=== PATIENT | female | born 1995 | race Caucasian/White ===

== ENCOUNTER 2018-12-07 16:55 | Inpatient (IN) | payer BC ==
[2018-12-07] MEDS ORDERED: Nalbuphine 20 MG/ML 1 ML Syringe IVPUSH PRN (17:59)
[2018-12-07] MEDS ORDERED: Sodium Chloride 0.9% 10 ML Syringe FLUSH PRN (17:59)
[2018-12-07] MEDS ORDERED: Ondansetron 4 MG/2 ML SDV IVPUSH PRN (17:59)
[2018-12-07] MEDS ORDERED: Oxytocin/Lactated Ringers 10 UNIT/1,000 ML BAG IV SCH (18:00)
[2018-12-07] MEDS ORDERED: fentaNYL 100 MCG/2 ML SDV ONE (20:11)
[2018-12-07] MEDS: Lactated Ringers 1,000 ML IV SCH ×3 (20:15→21:37)
[2018-12-07] MEDS ORDERED: diphenhydrAMINE 50 MG/ML SDV IVPUSH PRN (20:38)
[2018-12-07] MEDS ORDERED: fentaNYL/Bupivacaine-NS 2 MCG/ML-0.125%/PF 100 ML Bag EPIDUR PRN (20:38)
[2018-12-07] MEDS ORDERED: fentaNYL 100 MCG/2 ML SDV EPIDUR PRN (20:38)
[2018-12-07] MEDS ORDERED: ePHEDrine 50 MG/ML SDV IVPUSH PRN (20:38)
--- NOTE | 2018-12-07 21:17 | PCM.PREANE ---
Preanesthetic Assessment - Anesthesia/Transfusion/Family Hx Anesthesia History: Prior Anesthesia Without Reaction Family History of Anesthesia Reaction: No Transfusion History: No Prior Transfusion(s) - Review of Systems General: Fatigue Pulmonary: No Symptoms Cardiovascular: Dyspnea on Exertion Gastrointestinal: Abdominal Pain (labor) Neurological: No Symptoms Other: Reports: None - Physical Assessment Pulse: 78 O2 Sat by Pulse Oximetry: 98 Respiratory Rate: 16 Blood Pressure: 137/93 Temperature: 36.6 C Vital Signs: Last Vital Signs Temp 36.6 C 12/07/18 17:22 Pulse 78 12/07/18 17:22 Resp 16 12/07/18 17:22 BP 137/93 H 12/07/18 17:22 Pulse Ox Height: 1.74 m Weight: 93.939 kg ASA Class: 2 Mental Status: Alert & Oriented x3 Airway Class: Mallampati = 1 Dentition: Reports: Normal Dentition Thyro-Mental Finger Breadths: 3 Mouth Opening Finger Breadths: 3 ROM/Head Extension: Full Lungs: Clear to Auscultation, Normal Respiratory Effort Cardiovascular: Regular Rate, Regular Rhythm - Lab Values: Laboratory Last Values WBC 14.72 K/mm3 (3.98-10.04) H 12/07/18 20:50 RBC 3.84 M/mm3 (3.98-5.22) L 12/07/18 20:50 Hgb 10.7 gm/L (11.2-15.7) L 12/07/18 20:50 Hct 33.3 % (34.1-44.9) L 12/07/18 20:50 MCV 86.7 fl (79.4-94.8) 12/07/18 20:50 MCH 27.9 pg (25.6-32.2) 12/07/18 20:50 MCHC 32.1 g/dl (32.2-35.5) L 12/07/18 20:50 RDW Std Deviation 44.9 fL (36.4-46.3) 12/07/18 20:50 Plt Count 266 K/mm3 (182-369) 12/07/18 20:50 MPV 10.4 fl (9.4-12.3) 12/07/18 20:50 - Allergies Allergies/Adverse Reactions: Allergies Allergy/AdvReac Type Severity Reaction Status Date / Time cat dander Allergy Itching Verified 12/07/18 17:57 - Anesthesia Plan Pre-Op Medication Ordered: None - Acknowledgements Anesthesia Type Planned: Epidural Pt an Appropriate Candidate for the Planned Anesthesia: Yes Alternatives and Risks of Anesthesia Discussed w Pt/Guardian: Yes Pt/Guardian Understands and Agrees with Anesthesia Plan: Yes PreAnesthesia Questionnaire - Past Health History Medical/Surgical History: Denies Medical/Surgical History HEENT History: Reports: None Cardiovascular History: Reports: Hypertension Other Cardiovascular History: Gestational HTN Respiratory History: Reports: Asthma, Other (See Below) Other Respiratory History: Allergic/exercise induced asthma with PRN inhaler use (ProAir (not used since prgnant) Gastrointestinal History: Reports: GERD Genitourinary History: Reports: STD Other Genitourinary History: HX Herpes [employer] [address] [employer] History: Reports: Musculoskeletal History: Reports: None Neurological History: Reports: None Psychiatric History: Reports: None Endocrine/Metabolic History: Reports: None Hematologic History: Reports: None Immunologic History: Reports: None Oncologic (Cancer) History: Reports: None Dermatologic History: Reports: None - Infectious Disease History Infectious Disease History: Reports: Herpes - Past Surgical History Head Surgeries/Procedures: Reports: None HEENT Surgical History: Reports: Oral Surgery Other HEENT Surgeries/Procedures: wisdom teeth 6 years ago - SUBSTANCE USE Smoking Status *Q: Never Smoker Second Hand Smoke Exposure: No Recreational Drug Use History: No - HOME MEDS Home Medications: Home Meds PNV95/Ferrous Fumarate/FA [ Tablet] 1 tab PO DAILY 12/07/18 [History] - CURRENT (IN HOUSE) MEDS Current Meds: Current Medications Diphenhydramine HCl (Benadryl) 25 mg IVPUSH Q6H PRN PRN Reason: Itching Ephedrine Sulfate (Ephedrine Sulfate) 5 mg IVPUSH ASDIRECTED PRN PRN Reason: HYPOTENTSION Fentanyl (Sublimaze) 100 mcg EPIDUR Q3H PRN PRN Reason: Pain Last Admin: 12/07/18 21:08 Dose: 100 mcg Fentanyl/Bupivacaine HCl (Esjjokzy-Mmcxs-Ox 2 Mcg/Ml-0.125%) 100 ml EPIDUR ASDIRECTED PRN PRN Reason: Pain Last Admin: 12/07/18 21:08 Dose: 100 ml Lactated Ringer's (Ringers, Lactated) 1,000 mls @ 100 mls/hr IV ASDIRECTED ALBERT Last Admin: 12/07/18 20:48 Dose: 999 mls/hr Oxytocin/Lactated Ringer's (Pitocin In Lr 10 Units/1,000 Ml) 10 unit in 1,000 mls @ 500 mls/hr IV .CONTINUOUS ALBERT Nalbuphine HCl (Nubain) 10 mg IVPUSH Q2H PRN PRN Reason: pain Ondansetron HCl (Zofran) 4 mg IVPUSH Q4H PRN PRN Reason: Nausea/Vomiting Sodium Chloride (Saline Flush) 10 ml FLUSH ASDIRECTED PRN PRN Reason: Keep Vein Open Discontinued Medications Fentanyl (Sublimaze) Confirm Administered Dose 100 mcg .ROUTE .Savage IO-MED ONE Stop: 12/07/18 20:12
[2018-12-07] MEDS ORDERED: Bupivacaine 0.25% 10 ML SDV ONE (22:00)
--- NOTE | 2018-12-08 04:42 | PCM.LDHP ---
L&D History of Present Illness - General Date of Service: 12/07/18 Admit Problem/Dx: Patient Status Order with Admit Dx/Problem 12/07/18 17:59 Patient Status [ADT] Routine Admission Diagnosis/Problem Admission Diagnosis/Problem Source of Information: Patient History Limitations: Reports: No Limitations - History of Present Illness Introduction:: 23 year old at 39w4d by LMP consistent with 10w ultrasound presents with contractions every 5 minutes. PNC with myself complicated by questionable history of herpes (was told herpes but review reveals eventual PCR of lesion was negative) Pain Score: 10 - Related Data Allergies/Adverse Reactions: Allergies Allergy/AdvReac Type Severity Reaction Status Date / Time cat dander Allergy Itching Verified 12/07/18 17:57 Home Medications: Home Meds PNV95/Ferrous Fumarate/FA [ Tablet] 1 tab PO DAILY 12/07/18 [History] Past Medical History - Past Health History Medical/Surgical History: Denies Medical/Surgical History HEENT History: Reports: None Cardiovascular History: Reports: Hypertension Other Cardiovascular History: Gestational HTN Respiratory History: Reports: Asthma, Other (See Below) Other Respiratory History: Allergic/exercise induced asthma with PRN inhaler use (ProAir (not used since prgnant) Gastrointestinal History: Reports: GERD Genitourinary History: Reports: STD Other Genitourinary History: HX Herpes [employer] History: Reports: Musculoskeletal History: Reports: None Neurological History: Reports: None Psychiatric History: Reports: None Endocrine/Metabolic History: Reports: None Hematologic History: Reports: None Immunologic History: Reports: None Oncologic (Cancer) History: Reports: None Dermatologic History: Reports: None - Infectious Disease History Infectious Disease History: Reports: Herpes - Past Surgical History Head Surgeries/Procedures: Reports: None HEENT Surgical History: Reports: Oral Surgery Other HEENT Surgeries/Procedures: wisdom teeth 6 years ago Social & Family History - Family History Family Medical History: Noncontributory - Tobacco Use Smoking Status *Q: Never Smoker Second Hand Smoke Exposure: No - Caffeine Use Caffeine Use: Reports: None - Recreational Drug Use Recreational Drug Use: No H&P Review of Systems - Review of Systems: Review Of Systems: See Below General: Reports: No Symptoms HEENT: Reports: No Symptoms Pulmonary: Reports: No Symptoms Cardiovascular: Reports: No Symptoms Gastrointestinal: Reports: No Symptoms Genitourinary: Reports: No Symptoms Musculoskeletal: Reports: No Symptoms Skin: Reports: No Symptoms Psychiatric: Reports: No Symptoms Neurological: Reports: No Symptoms Hematologic/Lymphatic: Reports: No Symptoms Immunologic: Reports: No Symptoms L&D Exam - Exam Exam: See Below - Vital Signs Vital Signs: Last Vital Signs Temp 36.6 C 12/07/18 21:17 Pulse 78 12/07/18 21:17 Resp 16 12/07/18 21:17 BP 137/93 H 12/07/18 21:17 Pulse Ox 98 12/07/18 21:17 Weight: 93.939 kg - OB Specific Fundal Height In cm: 39 Contraction Intensity: Moderate to Strong Movement: Active Heart Tones: Present Heart Tones per Min: 145 Estimated Weight: 3600 - Noel Score Noel Score Cervix Position: Anterior Noel Score Consistency: Soft Noel Score Effacement: >80% Noel Score Dilation: 3-4 cm Noel Score 's Station: -3 Noel Score Total: 9 - Exam General: Alert, Oriented HEENT: PERRLA, Conjunctiva Clear, EACs Clear, EOMI, Hearing Intact, Mucosa Moist & [place], Nares Patent, Normal Nasal Septum, Posterior Pharynx Clear, TMs Clear Neck: Supple, Trachea Midline Lungs: Clear to Auscultation, Normal Respiratory Effort Cardiovascular: Regular Rate, Regular Rhythm GI/Abdominal Exam: Normal Bowel Sounds, Soft, Non-Tender, No Organomegaly, No Distention, No Abnormal Bruit, No Mass, Pelvis Stable Back Exam: Normal Inspection, Full Range of Motion Extremities: Normal Inspection, Normal Range of Motion, Non-Tender, No Pedal Edema, Normal Capillary Refill Skin: Warm, Dry, Intact Neurological: Cranial Nerves Intact, Reflexes Equal Bilateral Psychiatric: Alert, Normal Affect, Normal Mood - Patient Data Lab Results Last 24 hrs: Laboratory Results - last 24 hr 12/07/18 12/07/18 Range/Units 20:50 20:50 WBC 14.72 H (3.98-10.04) K/mm3 RBC 3.84 L (3.98-5.22) M/mm3 Hgb 10.7 L (11.2-15.7) gm/L Hct 33.3 L (34.1-44.9) % MCV 86.7 (79.4-94.8) fl MCH 27.9 (25.6-32.2) pg MCHC 32.1 L (32.2-35.5) g/dl RDW Std Deviation 44.9 (36.4-46.3) fL Plt Count 266 (182-369) K/mm3 MPV 10.4 (9.4-12.3) fl RPR Non-reactive (NONREACTIVE) Result Diagrams: 12/07/18 20:50 Problem List Initiated/Reviewed/Updated: Yes Orders Last 24hrs: Active Orders 24 hr Category Date Time Status Patient Status [ADT] Routine ADT 12/07/18 17:59 Active Activity as Tolerated [RC] PFP Care 12/07/18 17:59 Active Communication Order [RC] ASDIRECTED Care 12/07/18 17:59 Active Communication Order [RC] ASDIRECTED Care 12/07/18 20:38 Active Heart Tones [RC] ASDIRECTED Care 12/07/18 18:00 Active Notify Provider [RC] ASDIRECTED Care 12/07/18 20:38 Active Notify Provider [RC] PFP Care 12/07/18 17:59 Active Notify Provider [RC] PRN Care 12/07/18 17:59 Active Peripheral IV Care [RC] Q2HR Care 12/07/18 18:00 Active Pump Management, Intrathecal [RC] ASDIRECTED Care 12/07/18 18:07 Active Urinary Catheter Assessment [RC] ASDIRECTED Care 12/07/18 17:59 Active Vital Signs [RC] PER UNIT ROUTINE Care 12/07/18 17:59 Active Regular Diet [DIET] Diet 12/07/18 Dinner Active Lactated Ringers [Ringers, Lactated] 1,000 ml Med 12/07/18 18:00 Active IV ASDIRECTED Nalbuphine [Nubain] Med 12/07/18 17:59 Active 10 mg IVPUSH Q2H PRN Ondansetron [Zofran] Med 12/07/18 17:59 Active 4 mg IVPUSH Q4H PRN Oxytocin/Lactated Ringers [Pitocin in LR 10 Units/1,000 Med 12/07/18 18:00 Active ML] 10 unit in 1,000 ml IV .CONTINUOUS Sodium Chloride 0.9% [Saline Flush] Med 12/07/18 17:59 Active 10 ml FLUSH ASDIRECTED PRN diphenhydrAMINE [Benadryl] Med 12/07/18 20:38 Active 25 mg IVPUSH Q6H PRN ePHEDrine [ePHEDrine sulfate] Med 12/07/18 20:38 Active 5 mg IVPUSH ASDIRECTED PRN fentaNYL [Sublimaze] Med 12/07/18 20:38 Active 100 mcg EPIDUR Q3H PRN fentaNYL/Bupivacaine/NS/PF [lvcxySFG-Bfpkw-LH 2 MCG/ML- Med 12/07/18 20:38 Active 0.125%] 100 ml EPIDUR ASDIRECTED PRN Electronic Heart Tones Ext w TOCO [WOMSER] Oth 12/07/18 17:59 Ordered Routine Electronic Heart Tones Internal [WOMSER] Per Unit Oth 12/07/18 17:59 Ordered Routine Peripheral IV Insertion Adult [OM.PC] Routine Ot 12/07/18 17:59 Ordered Resuscitation Status Routine Resus Stat 12/07/18 17:59 Ordered Medication Orders Diphenhydramine HCl (Benadryl) 25 mg IVPUSH Q6H PRN PRN Reason: Itching Last Admin: 12/08/18 03:20 Dose: 25 mg Ephedrine Sulfate (Ephedrine Sulfate) 5 mg IVPUSH ASDIRECTED PRN PRN Reason: HYPOTENTSION Fentanyl (Sublimaze) 100 mcg EPIDUR Q3H PRN PRN Reason: Pain Last Admin: 12/07/18 21:08 Dose: 100 mcg Fentanyl/Bupivacaine HCl (Fjfwvptg-Uoqbq-Vf 2 Mcg/Ml-0.125%) 100 ml EPIDUR ASDIRECTED PRN PRN Reason: Pain Last Admin: 12/07/18 21:08 Dose: 100 ml Lactated Ringer's (Ringers, Lactated) 1,000 mls @ 100 mls/hr IV ASDIRECTED ALBERT Last Admin: 12/07/18 21:37 Dose: 999 mls/hr Infusion: 12/07/18 21:37 Dose: 999 mls/hr Admin: 12/07/18 20:48 Dose: 999 mls/hr Infusion: 12/07/18 20:48 Dose: 999 mls/hr Admin: 12/07/18 20:15 Dose: 999 mls/hr Oxytocin/Lactated Ringer's (Pitocin In Lr 10 Units/1,000 Ml) 10 unit in 1,000 mls @ 500 mls/hr IV .CONTINUOUS ALBERT Last Admin: 12/08/18 04:24 Dose: 500 mls/hr Nalbuphine HCl (Nubain) 10 mg IVPUSH Q2H PRN PRN Reason: pain Ondansetron HCl (Zofran) 4 mg IVPUSH Q4H PRN PRN Reason: Nausea/Vomiting Sodium Chloride (Saline Flush) 10 ml FLUSH ASDIRECTED PRN PRN Reason: Keep Vein Open Assessment/Plan Comment:: Term labor. Occasional minimally elevated blood pressures. Will watch them closely and add lab studies if they reach mild range. AROM. Anticipate
--- NOTE | 2018-12-08 04:45 | PCM.SN ---
- Free Text/Narrative Note: Stage I - Patient presented in active labor. AROM clear fluid. Epidural for anesthesia. Progressed nicely to complete with overall reassuring heart tones. Stage II - of viable female, weight 7#12oz, APGARS 8/8, at 0421. Head delivered OA in a controlled manner over intact perineum. Body and shoulders followed without difficulty. Positive cry. Placed on maternal abdomen. After one minute cord clamped and cut. Baby taken to warmer. Stage III - Placenta delivered spontaneously and intact. 3vc. No lacerations. EBL 100
[2018-12-08] MEDS ORDERED: Benzocaine/Menthol 20%-0.5% Spray 56 GM Canister TOP PRN (05:57)
[2018-12-08] MEDS ORDERED: Witch Hazel Medicated Pads 40/Jar TOP PRN (05:57)
[2018-12-08] MEDS ORDERED: Lanolin 100% Cream 7 GM Tube TOP PRN (05:57)
[2018-12-08] MEDS ORDERED: Docusate Sodium 100 MG Cap PO PRN (05:57)
--- NOTE | 2018-12-08 08:05 | PCM48HPAN ---
Post Anesthesia Note - EVALUATION WITHIN 48HRS OF ANESTHETIC Vital Signs in Normal Range: Yes Patient Participated in Evaluation: Yes Respiratory Function Stable: Yes Airway Patent: Yes Cardiovascular Function Stable: Yes Hydration Status Stable: Yes Pain Control Satisfactory: Yes Nausea and Vomiting Control Satisfactory: Yes Mental Status Recovered: Yes
[2018-12-08] MEDS: Ibuprofen 600 MG Tab PO PRN ×3 (10:11→20:31)
[2018-12-09] MEDS: Acetaminophen 325 MG Tab PO PRN ×2 (03:32→17:32)
[2018-12-09] MEDS: Ibuprofen 600 MG Tab PO PRN ×2 (07:38→14:44)
--- NOTE | 2018-12-09 10:26 | PCM.PNPP ---
- General Info Date of Service: 12/09/18 Functional Status: Reports: Pain Controlled - Review of Systems General: Reports: No Symptoms HEENT: Reports: No Symptoms Pulmonary: Reports: No Symptoms Cardiovascular: Reports: No Symptoms Gastrointestinal: Reports: No Symptoms Genitourinary: Reports: No Symptoms Musculoskeletal: Reports: No Symptoms Skin: Reports: No Symptoms Neurological: Reports: No Symptoms Psychiatric: Reports: No Symptoms - Patient Data Vital Signs - Most Recent: Last Vital Signs Temp 36.7 C 12/09/18 03:31 Pulse 65 12/09/18 03:31 Resp 16 12/09/18 03:31 BP 123/73 12/09/18 03:31 Pulse Ox 99 12/09/18 03:31 Weight - Most Recent: 93.939 kg Med Orders - Current: Current Medications Acetaminophen (Tylenol) 650 mg PO Q4H PRN PRN Reason: Pain Last Admin: 12/09/18 03:32 Dose: 650 mg Benzocaine/Menthol (Dermoplast Pain Relief Reedy) 0 gm TOP ASDIRECTED PRN PRN Reason: Perineal Comfort Measure Last Admin: 12/08/18 06:13 Dose: 1 can Docusate Sodium (Colace) 100 mg PO BID PRN PRN Reason: Constipation Emollient Ointment (Lansinoh Hpa) 0 gm TOP ASDIRECTED PRN PRN Reason: Sore Nipples Ibuprofen (Motrin) 600 mg PO Q6H PRN PRN Reason: Mild pain or fever Last Admin: 12/09/18 07:38 Dose: 600 mg Witch [place] (Tucks) 1 pad TOP ASDIRECTED PRN PRN Reason: Pain Last Admin: 12/08/18 06:12 Dose: 1 tub Discontinued Medications Bupivacaine HCl (Sensorcaine-Mpf 0.25%) 10 ml .ROUTE .STK-MED ONE Stop: 12/07/18 22:01 Diphenhydramine HCl (Benadryl) 25 mg IVPUSH Q6H PRN PRN Reason: Itching Last Admin: 12/08/18 03:20 Dose: 25 mg Ephedrine Sulfate (Ephedrine Sulfate) 5 mg IVPUSH ASDIRECTED PRN PRN Reason: HYPOTENTSION Fentanyl (Sublimaze) Confirm Administered Dose 100 mcg .ROUTE .STK-MED ONE Stop: 12/07/18 20:12 Last Admin: 12/07/18 21:46 Dose: Not Given Fentanyl (Sublimaze) 100 mcg EPIDUR Q3H PRN PRN Reason: Pain Last Admin: 12/07/18 21:08 Dose: 100 mcg Fentanyl/Bupivacaine HCl (Zfxudoia-Jinrt-Zr 2 Mcg/Ml-0.125%) 100 ml EPIDUR ASDIRECTED PRN PRN Reason: Pain Last Admin: 12/07/18 21:08 Dose: 100 ml Lactated Ringer's (Ringers, Lactated) 1,000 mls @ 100 mls/hr IV ASDIRECTED ALBERT Last Admin: 12/07/18 21:37 Dose: 999 mls/hr Oxytocin/Lactated Ringer's (Pitocin In Lr 10 Units/1,000 Ml) 10 unit in 1,000 mls @ 500 mls/hr IV .CONTINUOUS ALBERT Last Admin: 12/08/18 04:24 Dose: 500 mls/hr Nalbuphine HCl (Nubain) 10 mg IVPUSH Q2H PRN PRN Reason: pain Ondansetron HCl (Zofran) 4 mg IVPUSH Q4H PRN PRN Reason: Nausea/Vomiting Sodium Chloride (Saline Flush) 10 ml FLUSH ASDIRECTED PRN PRN Reason: Keep Vein Open - Interaction Disposition, : to Nursery Support Person: Significant Other - Recovery Exam Fundal Tone: Firm Fundal Level: 1 Fingerbreadths Below Umbilicus Fundal Placement: Midline Lochia Amount: Small Lochia Color: Rubra/Red Perineum Description: Intact, Minimal Bruising/Swelling Episiotomy/Laceration: None Bladder Status: Voiding - Exam General: Alert, Oriented HEENT: Pupils Equal Neck: Supple Lungs: Clear to Auscultation, Normal Respiratory Effort Cardiovascular: Regular Rate, Regular Rhythm GI/Abdominal Exam: Normal Bowel Sounds, Soft, Non-Tender, No Organomegaly, No Distention, No Abnormal Bruit, No Mass, Pelvis Stable Extremities: Normal Inspection, Normal Range of Motion, Non-Tender, No Pedal Edema, Normal Capillary Refill Neurological: No New Focal Deficit Psy/Mental Status: Alert, Normal Affect, Normal Mood - Problem List Review Problem List Initiated/Reviewed/Updated: Yes - My Orders Last 24 Hours: My Active Orders 12/08/18 Lunch Regular Diet [DIET] 12/09/18 03:26 Acetaminophen [Tylenol] 650 mg PO Q4H PRN 12/09/18 05:57 Heat Therapy [OM.PC] PRN - Assessment Assessment:: Term delivery. PPD1 doing well - Plan Plan:: Term labor. Occasional minimally elevated blood pressures. Will watch them closely and add lab studies if they reach mild range. AROM. Anticipate
[2018-12-10] MEDS: Ibuprofen 600 MG Tab PO PRN (07:52)
[2018-12-10 07:57] VITALS: BP 143/92
== END 2018-12-10 10:57 | disposition home or self-care (01) | DRG 560 ==
LOC: JD.OB 16:55 → JD.OBCHECK 16:55 → JD.OB 17:59 → JD.OBCHECK 17:59 → OBSVTOIN 12-08 04:21 → JD.OB 12-08 04:22
PROVIDERS: ADMIT Obstetrics & Gynecology; ATTEND Obstetrics & Gynecology
PROC: 10907ZC Drainage of Amniotic Fluid, Therapeutic from Products of Conception, Via Natural or Artificial Opening (ICD-10-PCS; principal; 2018-12-08)
PROC: 10E0XZZ Delivery of Products of Conception, External Approach (ICD-10-PCS; principal; 2018-12-08)
PROC: 00HU33Z Insertion of Infusion Device into Spinal Canal, Percutaneous Approach (ICD-10-PCS; 2018-12-08)
PROC: 3E0R3BZ Introduction of Anesthetic Agent into Spinal Canal, Percutaneous Approach (ICD-10-PCS; 2018-12-08)
DX: O13.4 Gestational [pregnancy-induced] hypertension without significant proteinuria, complicating childbirth (principal); Z3A.39 39 weeks gestation of pregnancy; Z37.0 Single live birth; Z91.048 Other nonmedicinal substance allergy status
CPT/HCPCS: 36415; 51702; 59025; 59409; 85027; 86592; 94762; A9270-GY; J1200; J2590; J3010; J3490; J7120

== ENCOUNTER 2021-04-19 01:34 | Inpatient (IN) | payer MEDICAID ==
[2021-04-19] MEDS ORDERED: Sodium Chloride 0.9% 10 ML Syringe FLUSH PRN (04:37)
[2021-04-19] MEDS ORDERED: Nalbuphine 10 MG/1 ML Vial IVPUSH PRN (04:37)
[2021-04-19] MEDS ORDERED: Oxytocin/Lactated Ringers 10 UNIT/1,000 ML BAG IV SCH ×2 (04:45→11:35)
[2021-04-19] MEDS: Lactated Ringers 1,000 ML IV SCH ×2 (07:17→09:03)
--- NOTE | 2021-04-19 07:49 | PCM.LDHP ---
L&D History of Present Illness - General Date of Service: 04/19/21 Admit Problem/Dx: Patient Status Order with Admit Dx/Problem 04/19/21 01:39 Patient Status [ADT] Routine 04/19/21 04:37 Patient Status [ADT] Routine Admission Diagnosis/Problem Admission Diagnosis/Problem 04/19/21 07:39 Jocelyn is a 26-year-old 3 para 2-0-0-2 female admitted on 04/19/2021 at 39-3/7 weeks gestational age with an BENIGNO of 04/23/2021 in active labor with progressive cervical dilation. Source of Information: Patient History Limitations: Reports: No Limitations - History of Present Illness Introduction:: Jocelyn is a 26-year-old 3 para 2-0-0-2 female admitted on 04/19/2021 at 39-3/7 weeks gestational age with an BENIGNO of 04/23/2021 in active labor with progressive cervical dilation. Contractions started within the last 12 hours and have progressively increased. She has progressed to 4 cm. Was seen in clinic yesterday and was 2 cm by patient's report. She has intact membranes upon admission. Contractions every 3 to 5 minutes. Mild in nature. heart tones have been reassuring. Blood pressures have been borderline elevated in the 140s over 80s. Preeclampsia labs have been done and are relatively normal. Patient has a history of preeclampsia with her first . [employer] OFFICER history: 3 para 2-0-0-2. BENIGNO 04/23/2021 was set by her LMP 07/17/2021 which was approximate. Ultrasound was supportive of her dates. She has had regular care starting at 10 weeks 3 days. Vital signs have been stable with her blood pressures in normal range. Fundal height growth has been appropriate. Weight gain has been from 156 pounds to 175 pounds for a 19 pound increase. Patient has reported good activity. Past obstetric history includes normal spontaneous vaginal delivery x2. 1. First delivered 04/06/2016 at 37-2/7 weeks gestational age6 pounds 8 ouncesNSVDepidural usedchild's name is Any. 2. Second delivered on 12/08/2018 at 39-5/7 weeks gestational age7 pounds 12 ouncesspontaneous vaginal deliveryfemale -child's name is Magalis. Patient has a remote history of some type of genital lesions. Many years ago was told these might be herpes. Apparently had evaluation for that and per Dr. Hopper's documentation and patient's report this was negative for HSV. Has no lesions at this time nor has she had any lesions during the course of her . She has not been on any antiviral medications. Pap smears have been normal. Laboratory testing shows blood to be be positive with a negative antibody screen. First hemoglobin was 14.4 g/dL. Platelets were 312,000. She is rubella immune. RPR was nonreactive. Hepatitis B surface antigen and hepatitis C evaluations were both nonreactive. Chlamydia and keturah orrhea were not detected. Second trimester evaluation showed glucose to be 132. Platelets were 259,000. Hemoglobin was 12.6. Group B strep screen was negative. Allergies: Cat dander Medications: 1. vitamins daily 2. Proair inhaler use as neededhas not used recently has had no problems and or need for. Past medical history: 1. x2 2. Asthmaunder good control 3. Hypertension with first Past surgical history: Farnam tooth extraction Family history: Mother with some mental health issues on medications. Father with hypertension on meds. Patient is an only child. Grandparents are with the exception of paternal grandfather who is elderly and has some comorbidities. Paternal grandmother from pancreatic cancer. Maternal grandfather and grandmother from alcohol-related illness. No anesthesia, bleeding, blood clotting problems noted in the family. Social history: Patient is a [id number]-[id number] mom. Her significant other is Anatoly Stuart. She does not use any significance alcohol, drugs or tobacco. Review of systems: In general patient has no complaints other than contractions. Patient reports good activity. No loss of vaginal fluid or bleeding noted. Skin: Negative Lungs: No infectious symptoms or shortness of breath Cardiovascular: No chest pain or exercise intolerance Breasts: No lumps, changes in size, pain, dimpling, discharge or axillary or supraclavicular concerns. GI: Negative : Per HPI Musculoskeletal: Negative Neurological: Negative In general the patient is well-developed, well-nourished, pleasant female of stated age in no acute distress. Skin is warm dry without lesions. HEENT, neck and back within normal limits. Lungs are clear with good breath sounds in all lung deng. Cardiovascular exam shows regular and rhythm without murmurs. Abdomen is gravid with fundal height consistent with gestational age. Baby in vertex presentation. Genital per digital exam shows cervix to be 4 cm, 85% effaced, -2 station, anterior, very soft. AROM is undertaken with resultant clear amniotic fluid. Extremities and neurological exam are grossly within normal limits. - Related Data Allergies/Adverse Reactions: Allergies Allergy/AdvReac Type Severity Reaction Status Date / Time cat dander Allergy Itching Verified 12/07/18 17:57 Home Medications: Home Meds Pnv No.95/Ferrous Fum/Folic AC [ Tablet] 1 tab PO DAILY 12/07/18 [History] Albuterol Sulfate [Proair Hfa] 8.5 gm IH Q6HR PRN 04/19/21 [History] Past Medical History - Past Health History Medical/Surgical History: Denies Medical/Surgical History HEENT History: Reports: None Cardiovascular History: Reports: Hypertension Other Cardiovascular History: Gestational HTN Respiratory History: Reports: Asthma, Other (See Below) Other Respiratory History: Allergic/exercise induced asthma with PRN inhaler use (ProAir (used 1 week ago) Gastrointestinal History: Reports: GERD Genitourinary History: Reports: STD Other Genitourinary History: HX Genital herpes in preg and herpes infection on list at 34 weeks. Pt states she was not treated. Will notify MD and peds RA[employer] OFFICER History: Reports: Musculoskeletal History: Reports: None Neurological History: Reports: None Psychiatric History: Reports: Depression, Other (See Below) Other Psychiatric History: HX of depression and was never on meds. States she is not depressed at this time Endocrine/Metabolic History: Reports: None Hematologic History: Reports: None Immunologic History: Reports: None Oncologic (Cancer) History: Reports: None Dermatologic History: Reports: None - Infectious Disease History Infectious Disease History: Reports: Herpes - Past Surgical History Head Surgeries/Procedures: Reports: None HEENT Surgical History: Reports: Oral Surgery Other HEENT Surgeries/Procedures: wisdom teeth 6 years ago Cardiovascular Surgical History: Reports: None Respiratory Surgical History: Reports: None GI Surgical History: Reports: None Female Surgical History: Reports: None Endocrine Surgical History: Reports: None Neurological Surgical History: Reports: None Musculoskeletal Surgical History: Reports: None Oncologic Surgical History: Reports: None Dermatological Surgical History: Reports: None Social & Family History - Family History Family Medical History: No Pertinent Family History - Tobacco Use Tobacco Use Status *Q: Never Tobacco User - Caffeine Use Caffeine Use: Reports: None - Recreational Drug Use Recreational Drug Use: No H&P Review of Systems - Review of Systems: Review Of Systems: See Below L&D Exam - Exam Exam: See Below - Vital Signs Vital Signs: Last Vital Signs Temp 36.8 C 04/19/21 01:39 Pulse 63 04/19/21 01:39 Resp 14 04/19/21 01:39 BP 136/101 H 04/19/21 01:39 Pulse Ox 98 04/19/21 01:39 Weight: 81.193 kg - Patient Data Lab Results Last 24 hrs: Laboratory Results - last 24 hr 04/19/21 04/19/21 04/19/21 Range/Units 02:58 03:12 03:12 WBC 11.58 H (3.98-10.04) K/mm3 RBC 4.04 (3.98-5.22) M/mm3 Hgb 11.8 (11.2-15.7) gm/dl Hct 36.2 (34.1-44.9) % MCV 89.6 (79.4-94.8) fl MCH 29.2 (25.6-32.2) pg MCHC 32.6 (32.2-35.5) g/dl RDW Std Deviation 42.4 (36.4-46.3) fL Plt Count 254 (182-369) K/mm3 MPV 11.2 (9.4-12.3) fl Neut % (Auto) 71.1 (34.0-71.1) % Lymph % (Auto) 20.2 (19.3-51.7) % [place] % (Auto) 6.1 (4.7-12.5) % Eos % (Auto) 2.1 (0.7-5.8) Baso % (Auto) 0.2 (0.1-1.2) % Neut # (Auto) 8.24 H (1.56-6.13) K/mm3 Lymph # (Auto) 2.34 (1.18-3.74) K/mm3 [place] # (Auto) 0.71 H (0.24-0.36) K/mm3 Eos # (Auto) 0.24 (0.04-0.36) K/mm3 Baso # (Auto) 0.02 (0.01-0.08) K/mm3 BUN 9 (7-18) mg/dL Creatinine 0.5 L (0.55-1.02) mg/dL Est Cr Clr Drug Dosing 175.02 mL/min Estimated GFR (MDRD) > 60 (>60) mL/min Uric Acid 4.0 (2.6-6.0) mg/dL AST 17 (15-37) U/L ALT 15 (14-59) U/L Lactate Dehydrogenase 184 (81-234) U/L Ur Random Creatinine 26.1 L (30.0-125.0) mg/dL U Random Total Protein 100.4 H (0.0-11.8) mg/dL Protein/Creatinin Ratio 3846.7 H (0-149) mg/g SARS-CoV-2 RNA (NILE) (NEGATIVE) Blood Type Gel Antibody Screen 04/19/21 04/19/21 Range/Units 03:12 04:30 WBC (3.98-10.04) K/mm3 RBC (3.98-5.22) M/mm3 Hgb (11.2-15.7) gm/dl Hct (34.1-44.9) % MCV (79.4-94.8) fl MCH (25.6-32.2) pg MCHC (32.2-35.5) g/dl RDW Std Deviation (36.4-46.3) fL Plt Count (182-369) K/mm3 MPV (9.4-12.3) fl Neut % (Auto) (34.0-71.1) % Lymph % (Auto) (19.3-51.7) % [place] % (Auto) (4.7-12.5) % Eos % (Auto) (0.7-5.8) Baso % (Auto) (0.1-1.2) % Neut # (Auto) (1.56-6.13) K/mm3 Lymph # (Auto) (1.18-3.74) K/mm3 [place] # (Auto) (0.24-0.36) K/mm3 Eos # (Auto) (0.04-0.36) K/mm3 Baso # (Auto) (0.01-0.08) K/mm3 BUN (7-18) mg/dL Creatinine (0.55-1.02) mg/dL Est Cr Clr Drug Dosing mL/min Estimated GFR (MDRD) (>60) mL/min Uric Acid (2.6-6.0) mg/dL AST (15-37) U/L ALT (14-59) U/L Lactate Dehydrogenase (81-234) U/L Ur Random Creatinine (30.0-125.0) mg/dL U Random Total Protein (0.0-11.8) mg/dL Protein/Creatinin Ratio (0-149) mg/g SARS-CoV-2 RNA (NILE) Negative (NEGATIVE) Blood Type B POSITIVE Gel Antibody Screen Negative Result Diagrams: 04/19/21 03:12 04/19/21 03:12 - Problem List (1) 39 weeks gestation of SNOMED Code(s): 96183856 ICD Code: Z3A.39 - 39 WEEKS GESTATION OF Status: Acute Current Visit: Yes (2) Active labor SNOMED Code(s): 854123496 ICD Code: [id number] - Status: Acute Current Visit: Yes Problem List Initiated/Reviewed/Updated: Yes Orders Last 24hrs: Active Orders 24 hr Category Date Time Status Patient Status [ADT] Routine ADT 04/19/21 01:39 Active Patient Status [ADT] Routine ADT 04/19/21 04:37 Active Activity as Tolerated [RC] PFP Care 04/19/21 04:37 Active Communication Order [RC] ASDIRECTED Care 04/19/21 04:37 Active Heart Tones [RC] ASDIRECTED Care 04/19/21 04:38 Active Non Stress Test [RC] PER UNIT ROUTINE Care 04/19/21 01:39 Active Non Stress Test [RC] PER UNIT ROUTINE Care 04/19/21 04:37 Active Notify Provider [RC] PFP Care 04/19/21 04:37 Active Notify Provider [RC] PRN Care 04/19/21 04:37 Active Peripheral IV Care [RC] Q4HR Care 04/19/21 04:38 Active Vital Signs [RC] PER UNIT ROUTINE Care 04/19/21 01:39 Active Vital Signs [RC] PER UNIT ROUTINE Care 04/19/21 04:37 Active Regular Diet [DIET] Diet 04/19/21 Breakfast Active RAPID PLASMA REAGIN,RPR [CHEM] Routine Lab 04/19/21 04:37 Ordered Lactated Ringers [Ringers, Lactated] 1,000 ml Med 04/19/21 04:45 Active IV ASDIRECTED Nalbuphine [Nubain] Med 04/19/21 04:37 Active 10 mg IVPUSH Q2H PRN Oxytocin/Lactated Ringers [Pitocin in LR 10 Units/1,000 Med 04/19/21 04:45 Active ML] 10 unit in 1,000 ml IV TITRATE Sodium Chloride 0.9% [Saline Flush] Med 04/19/21 04:37 Active 10 ml FLUSH ASDIRECTED PRN Electronic Heart Tones Ext w TOCO [WOMSER] Oth 04/19/21 04:37 Ordered Routine Electronic Heart Tones Internal [WOMSER] Per Unit Oth 04/19/21 04:37 Ordered Routine PIH Panel [OM.PC] Stat Oth 04/19/21 02:58 Ordered Peripheral IV Insertion Adult [OM.PC] Routine Oth 04/19/21 04:37 Ordered Resuscitation Status Routine Resus Stat 04/19/21 01:39 Ordered Medication Orders Lactated Ringer's (Ringers, Lactated) 1,000 mls @ 100 mls/hr IV ASDIRECTED ALBERT Last Admin: 04/19/21 07:17 Dose: 250 mls/hr Documented by: [email or web address] Oxytocin/Lactated Ringer's (Pitocin In Lr 10 Units/1,000 Ml) 10 unit in 1,000 mls @ 12 mls/hr IV TITRATE ALBERT; Protocol Nalbuphine HCl (Nalbuphine 10 Mg/1 Ml Vial) 10 mg IVPUSH Q2H PRN PRN Reason: Pain Sodium Chloride (Sodium Chloride 0.9% 10 Ml Syringe) 10 ml FLUSH ASDIRECTED PRN PRN Reason: Keep Vein Open Assessment/Plan Comment:: 1. Jocelyn is a 26-year-old 3 para 2-0-0-2 female admitted on 04/19/2021 at 39-3/7 weeks gestational age with an BENIGNO of 04/23/2021 in active labor with progressive cervical dilation. 2. Group B strep negative 3. Remote history of genital lesion with medical judgment consistent with this not being HSV. No lesions noted during and none are reported at this time or seen on exam at this time. Patient has not had any antiviral therapy during the course. 4. Reassuring heart tones 5. Patient plans to breast-feed 6. Rh+ Plan: 1. Anticipate 2. Support breast-feeding decision 3. Epidural per patient desire 4. Patient has been admitted and has had Covid testing, CBC, RPR per protocol.
[2021-04-19] MEDS ORDERED: ePHEDrine 50 MG/ML SDV IVPUSH PRN (08:55)
[2021-04-19] MEDS ORDERED: Bupivacaine/fentaNYL/NS 100 ML Bag EPIDUR PRN (08:55)
[2021-04-19] MEDS ORDERED: diphenhydrAMINE 50 MG/ML SDV IVPUSH PRN (08:55)
[2021-04-19] MEDS ORDERED: fentaNYL 100 MCG/2 ML SDV EPIDUR PRN (08:55)
[2021-04-19] MEDS ORDERED: Bupivacaine 0.25% 10 ML SDV ONE (09:00)
--- NOTE | 2021-04-19 09:01 | PCM.PREANE ---
Preanesthetic Assessment - Procedure Proposed Procedure: Labor epidural - Anesthesia/Transfusion/Family Hx Anesthesia History: Prior Anesthesia Reaction Other Type of Anesthesia Reaction Comment: pt states it made her HR drop Family History of Anesthesia Reaction: No Transfusion History: No Prior Transfusion(s) Intubation History: Unknown - Review of Systems General: No Symptoms Pulmonary: No Symptoms Cardiovascular: No Symptoms Gastrointestinal: Abdominal Pain (uterine contraction pain), Nausea Neurological: No Symptoms Other: Reports: Anxiety - Physical Assessment NPO Status Date: 04/19/21 NPO Status Time: 08:00 Vital Signs: Last Vital Signs Temp 98.3 F 04/19/21 01:39 Pulse 63 04/19/21 01:39 Resp 14 04/19/21 01:39 BP 136/101 H 04/19/21 01:39 Pulse Ox 98 04/19/21 01:39 Height: 1.73 m Weight: 81.193 kg ASA Class: 2 Mental Status: Alert & Oriented x3 Airway Class: Mallampati = 2 Dentition: Reports: Normal Dentition Thyro-Mental Finger Breadths: 3 Mouth Opening Finger Breadths: 3 ROM/Head Extension: Full Lungs: Clear to Auscultation, Normal Respiratory Effort Cardiovascular: Regular Rate, Regular Rhythm, No Murmurs - Lab Values: Laboratory Last Values WBC 11.58 K/mm3 (3.98-10.04) H 04/19/21 03:12 RBC 4.04 M/mm3 (3.98-5.22) 04/19/21 03:12 Hgb 11.8 gm/dl (11.2-15.7) 04/19/21 03:12 Hct 36.2 % (34.1-44.9) 04/19/21 03:12 MCV 89.6 fl (79.4-94.8) 04/19/21 03:12 MCH 29.2 pg (25.6-32.2) 04/19/21 03:12 MCHC 32.6 g/dl (32.2-35.5) 04/19/21 03:12 RDW Std Deviation 42.4 fL (36.4-46.3) 04/19/21 03:12 Plt Count 254 K/mm3 (182-369) 04/19/21 03:12 MPV 11.2 fl (9.4-12.3) 04/19/21 03:12 Neut % (Auto) 71.1 % (34.0-71.1) 04/19/21 03:12 Lymph % (Auto) 20.2 % (19.3-51.7) 04/19/21 03:12 [place] % (Auto) 6.1 % (4.7-12.5) 04/19/21 03:12 Eos % (Auto) 2.1 (0.7-5.8) 04/19/21 03:12 Baso % (Auto) 0.2 % (0.1-1.2) 04/19/21 03:12 Neut # (Auto) 8.24 K/mm3 (1.56-6.13) H 04/19/21 03:12 Lymph # (Auto) 2.34 K/mm3 (1.18-3.74) 04/19/21 03:12 [place] # (Auto) 0.71 K/mm3 (0.24-0.36) H 04/19/21 03:12 Eos # (Auto) 0.24 K/mm3 (0.04-0.36) 04/19/21 03:12 Baso # (Auto) 0.02 K/mm3 (0.01-0.08) 04/19/21 03:12 BUN 9 mg/dL (7-18) 04/19/21 03:12 Creatinine 0.5 mg/dL (0.55-1.02) L 04/19/21 03:12 Est Cr Clr Drug Dosing 175.02 mL/min 04/19/21 03:12 Estimated GFR (MDRD) > 60 mL/min (>60) 04/19/21 03:12 Uric Acid 4.0 mg/dL (2.6-6.0) 04/19/21 03:12 AST 17 U/L (15-37) 04/19/21 03:12 ALT 15 U/L (14-59) 04/19/21 03:12 Lactate Dehydrogenase 184 U/L (81-234) 04/19/21 03:12 Ur Random Creatinine 26.1 mg/dL (30.0-125.0) L 04/19/21 02:58 U Random Total Protein 100.4 mg/dL (0.0-11.8) H 04/19/21 02:58 Protein/Creatinin Ratio 3846.7 mg/g (0-149) H 04/19/21 02:58 SARS-CoV-2 RNA (NILE) Negative (NEGATIVE) 04/19/21 04:30 Blood Type B POSITIVE 04/19/21 03:12 Gel Antibody Screen Negative 04/19/21 03:12 - Allergies Allergies/Adverse Reactions: Allergies Allergy/AdvReac Type Severity Reaction Status Date / Time cat dander Allergy Itching Verified 12/07/18 17:57 - Blood Blood Available: No Product(s) Available: None - Acknowledgements Anesthesia Type Planned: MAC Pt an Appropriate Candidate for the Planned Anesthesia: Yes Alternatives and Risks of Anesthesia Discussed w Pt/Guardian: Yes Pt/Guardian Understands and Agrees with Anesthesia Plan: Yes PreAnesthesia Questionnaire - Past Health History Medical/Surgical History: Denies Medical/Surgical History HEENT History: Reports: None Cardiovascular History: Reports: Hypertension Other Cardiovascular History: Gestational HTN Respiratory History: Reports: Asthma, Other (See Below) Other Respiratory History: Allergic/exercise induced asthma with PRN inhaler use (ProAir (used 1 week ago) Gastrointestinal History: Reports: GERD Genitourinary History: Reports: STD Other Genitourinary History: HX Genital herpes in preg and herpes infection on list at 34 weeks. Pt states she was not treated. Will notify MD and peds RN CARE MANAGER History: Reports: Musculoskeletal History: Reports: None Neurological History: Reports: None Psychiatric History: Reports: Depression, Other (See Below) Other Psychiatric History: HX of depression and was never on meds. States she is not depressed at this time Endocrine/Metabolic History: Reports: None Hematologic History: Reports: None Immunologic History: Reports: None Oncologic (Cancer) History: Reports: None Dermatologic History: Reports: None - Infectious Disease History Infectious Disease History: Reports: Herpes - Past Surgical History Head Surgeries/Procedures: Reports: None HEENT Surgical History: Reports: Oral Surgery Other HEENT Surgeries/Procedures: wisdom teeth 6 years ago Cardiovascular Surgical History: Reports: None Respiratory Surgical History: Reports: None GI Surgical History: Reports: None Female Surgical History: Reports: None Endocrine Surgical History: Reports: None Neurological Surgical History: Reports: None Musculoskeletal Surgical History: Reports: None Oncologic Surgical History: Reports: None Dermatological Surgical History: Reports: None - SUBSTANCE USE Tobacco Use Status *Q: Never Tobacco User Tobacco Use Within Last Twelve Months: No Second Hand Smoke Exposure: Yes Days Per Week of Alcohol Use: 0 Number of Drinks Per Day: 0 Total Drinks Per Week: 0 Recreational Drug Use History: No - HOME MEDS Home Medications: Home Meds Pnv No.95/Ferrous Fum/Folic AC [ Tablet] 1 tab PO DAILY 12/07/18 [History] Albuterol Sulfate [Proair Hfa] 8.5 gm IH Q6HR PRN 04/19/21 [History] - CURRENT (IN HOUSE) MEDS Current Meds: Current Medications Lactated Ringer's (Ringers, Lactated) 1,000 mls @ 100 mls/hr IV ASDIRECTED ALBERT Last Admin: 04/19/21 07:17 Dose: 250 mls/hr Documented by: Oxytocin/Lactated Ringer's (Pitocin In Lr 10 Units/1,000 Ml) 10 unit in 1,000 mls @ 12 mls/hr IV TITRATE ALBERT; Protocol Nalbuphine HCl (Nalbuphine 10 Mg/1 Ml Vial) 10 mg IVPUSH Q2H PRN PRN Reason: Pain Sodium Chloride (Sodium Chloride 0.9% 10 Ml Syringe) 10 ml FLUSH ASDIRECTED PRN PRN Reason: Keep Vein Open
[2021-04-19] MEDS ORDERED: Ibuprofen 600 MG Tab PO PRN ×2 (18:35→22:31)
[2021-04-19] MEDS ORDERED: Albuterol 6.7 GM Inhaler INH PRN (22:15)
[2021-04-19] MEDS ORDERED: Acetaminophen 325 MG Tab PO PRN (22:31)
[2021-04-19] MEDS ORDERED: Docusate Sodium 100 MG Cap PO PRN (22:31)
[2021-04-19] MEDS ORDERED: Benzocaine/Menthol 20%-0.5% Spray 78 GM Cannister TOP PRN (22:31)
[2021-04-19] MEDS ORDERED: Witch Hazel Medicated Pads 40/Jar TOP PRN (22:31)
--- NOTE | 2021-04-19 23:05 | PCM.SN.2 ---
- Free Text/Narrative Note: Delivery note: Stage I: Jocelyn is a 26-year-old 3 para 2-0-0-2 female admitted on 04/19/2021 at 39-3/7 weeks gestational age with an BENIGNO of 04/23/2021 in active labor with progressive cervical dilation. She progressed steadily to approximately 4 cm dilation and was carmen every 2 to 4 minutes with modera te intensity. She underwent AROM with resultant clear amniotic fluid. heart tones were reassuring during the whole labor and vital signs were stable. She achieved complete cervical dilation by approximately 1130 hrs. on 04/19/2021. Stage II: Jocelyn achieved cervical complete cervical dilation and with 1 contraction delivered a viable, manriquez, female with Apgars of 8 and 9, a length of 20.5 inches, and weight of 3470 g (7 pounds 10.4 ounces) in a right occiput anterior position. The shoulders were delivered with mild traction and without significant effort. The baby was placed on mom's abdomen over nose and mouth were bulb suctioned and the baby was dried with warm blanket. Pitocin solution (10 units in a liter) was increased to 1000 mL an hour to facilitate increase in uterine tone and decrease likelihood of bleeding. The umbilical cord was allowed to pulsate x2 to 3 minutes and then was clamped x2 and cut by the baby's father. There were 3 vessels the umbilical cord and cord blood was obtained. Stage III: The placenta delivered at 1144 hrs. in a [place] presentation, it appeared intact and complete and was discarded per patient desire. Perineum was found to be intact and no suturing was required. Estimated blood loss was 100 cc. Condition: Good. Patient plans to breast-feed. Time Documentation
--- NOTE | 2021-04-20 05:12 | PCM.SN.2 ---
- Free Text/Narrative Note: note: Patient is doing well in the period. Minimal lochia, voiding well, ambulated without problems. Nursing without concerns. Blood pressures have been upper limits of normal. Other vital signs stable. Patient is afebrile, vital signs are stable Abdomen is flat, soft, uterus is below the umbilicus and is firm and nontender. Legs are nontender. Assessment: recovery going well. Plan: Routine care. Patient be discharged home within the next 24- 48 hours. Time Documentation
--- NOTE | 2021-04-20 07:07 | PCM.DCSUM1 ---
Discharge Summary - Hospital Course Free Text/Narrative:: Stage I: Jocelyn is a 26-year-old 3 para 2-0-0-2 female admitted on 04/19/2021 at 39-3/7 weeks gestational age with an BENIGNO of 04/23/2021 in active labor with progressive cervical dilation. She progressed steadily to approximately 4 cm dilation and was carmen every 2 to 4 minutes with moderate intensity. She underwent AROM with resultant clear amniotic fluid. heart tones were reassuring during the whole labor and vital signs were stable. She achieved complete cervical dilation by approximately 1130 hrs. on 04/19/2021. Stage II: Jocelyn achieved cervical complete cervical dilation and with 1 contraction delivered a viable, manriquez, female with Apgars of 8 and 9, a length of 20.5 inches, and weight of 3470 g (7 pounds 10.4 ounces) in a right occiput anterior position. The shoulders were delivered with mild traction and without significant effort. The baby was placed on mom's abdomen over nose and mouth were bulb suctioned and the baby was dried with warm blanket. Pitocin solution (10 units in a liter) was increased to 1000 mL an hour to facilitate increase in uterine tone and decrease likelihood of bleeding. The umbilical cord was allowed to pulsate x2 to 3 minutes and then was clamped x2 and cut by the baby's father. There were 3 vessels the umbilical cord and cord blood was obtained. Stage III: The placenta delivered at 1144 hrs. in a [place] presentation, it appeared intact and complete and was discarded per patient desire. Perineum was found to be intact and no suturing was required. Estimated blood loss was 100 cc. Pt has done well and is desiring discharge. Condition: Good. Patient plans to breast-feed. Diagnosis: Stroke: No - Discharge Data Discharge Date: 04/20/21 Discharge Disposition: Home, Self-Care 01 Condition: Good - Referral to Home Health Primary Care Physician: Alida Carmona MD - Discharge Diagnosis/Problem(s) (1) 39 weeks gestation of SNOMED Code(s): 11218655 ICD Code: Z3A.39 - 39 WEEKS GESTATION OF Status: Acute Current Visit: Yes (2) Active labor SNOMED Code(s): 132801025 ICD Code: [id number] - Status: Acute Current Visit: Yes - Patient Instructions Diet: Regular Diet as Tolerated Activity: As Tolerated Driving: May Drive Today Showering/Bathing: May Shower Notify Provider of: Fever, Increased Pain, Swelling and Redness, Nausea and/or Vomiting - Discharge Plan Home Medications: Home Meds Pnv No.95/Ferrous Fum/Folic AC [ Tablet] 1 tab PO DAILY 12/07/18 [History] Albuterol Sulfate [Proair Hfa] 8.5 gm IH Q6HR PRN 04/19/21 [History] Acetaminophen [Tylenol] 650 mg PO Q4H PRN tablet 04/20/21 [Rx] Ibuprofen [Motrin] 600 mg PO Q4H PRN tablet 04/20/21 [Rx] - Discharge Summary/Plan Comment DC Time >30 min.: No Total # of Minutes for Discharge Time: 10 Discharge Summary/Plan Comment: Discharge instructions: 1. Discharge home 2. Diet, activity and follow-up discussed with patient. Recommend nursing diet with increased calories and calcium. 3. Precautions given concern increased pain, bleeding, temperature, signs/symptoms of DVT/PE. 4. Medications per home medication was printed, discussed with and given to the patient. 5. Return to clinic-Dr. Carmona[facility] in 2 weeks. Diagnosis: Term -delivered Condition: Good - Patient Data Vitals - Most Recent: Last Vital Signs Temp 36.5 C 04/20/21 04:14 Pulse 75 04/20/21 04:14 Resp 14 04/20/21 04:14 BP 129/88 04/20/21 04:14 Pulse Ox 99 04/20/21 04:14 Weight - Most Recent: 81.193 kg I&O - Last 24 hours: Intake & Output 04/19/21 04/20/21 04/20/21 22:59 06:59 14:59 Intake Total 200 Balance 200 Lab Results - Last 24 hrs: Laboratory Results - last 24 hr 04/19/21 Range/Units 03:13 RPR Non-reactive (NONREACTIVE) Med Orders - Current: Current Medications Acetaminophen (Acetaminophen 325 Mg Tab) 650 mg PO Q4H PRN PRN Reason: mild pain or fever Last Admin: 04/20/21 01:00 Dose: 650 mg Documented by: Albuterol (Albuterol 6.7 Gm Inhaler) 0 gm INH Q6HR PRN PRN Reason: Wheezing Benzocaine/Menthol (Benzocaine/Menthol 20%-0.5% [place] 78 Gm Cannister) 0 gm TOP ASDIRECTED PRN PRN Reason: Perineal Comfort Measure Docusate Sodium (Docusate Sodium 100 Mg Cap) 100 mg PO BID PRN PRN Reason: Constipation Ibuprofen (Ibuprofen 600 Mg Tab) 600 mg PO Q4H PRN PRN Reason: Mild pain or fever Prenat Multivit/[place]/Iron/Folic Ac ( Multivitamin With Calcium/Folic Acid/Iron Tab) 1 each PO DAILY ALBERT [place] ([place] Medicated Pads 40/Jar) 1 pad TOP ASDIRECTED PRN PRN Reason: Perineal Comfort Measure Discontinued Medications Bupivacaine HCl (Bupivacaine 0.25% 10 Ml Sdv) 10 ml .ROUTE .STK-MED ONE Stop: 04/19/21 09:01 Diphenhydramine HCl (Diphenhydramine 50 Mg/Ml Sdv) 25 mg IVPUSH Q6H PRN PRN Reason: pruritis Ephedrine Sulfate (Ephedrine 50 Mg/Ml Sdv) 5 mg IVPUSH ASDIRECTED PRN PRN Reason: Hypotension Fentanyl (Fentanyl 100 Mcg/2 Ml Sdv) 100 mcg EPIDUR Q3H PRN PRN Reason: Pain Last Admin: 04/19/21 09:04 Dose: 100 mcg Documented by: Fentanyl/Bupivacaine HCl (Bupivacaine/Fentanyl/Ns 100 Ml Bag) 100 ml EPIDUR ASDIRECTED PRN PRN Reason: Pain Last Admin: 04/19/21 09:04 Dose: 100 ml Documented by: Lactated Ringer's (Ringers, Lactated) 1,000 mls @ 100 mls/hr IV ASDIRECTED ALBERT Last Admin: 04/19/21 09:03 Dose: 250 mls/hr Documented by: Oxytocin/Lactated Ringer's (Pitocin In Lr 10 Units/1,000 Ml) 10 unit in 1,000 mls @ 12 mls/hr IV TITRATE ALBERT; Protocol Oxytocin/Lactated Ringer's (Pitocin In Lr 10 Units/1,000 Ml) 10 unit in 1,000 mls @ 500 mls/hr IV TITRATE ALBERT; Protocol Last Admin: 04/19/21 18:40 Dose: 500 mls/hr, 500 mls/hr Documented by: Ibuprofen (Ibuprofen 600 Mg Tab) 600 mg PO Q6H PRN PRN Reason: Pain Last Admin: 04/19/21 21:44 Dose: 600 mg Documented by: Nalbuphine HCl (Nalbuphine 10 Mg/1 Ml Vial) 10 mg IVPUSH Q2H PRN PRN Reason: Pain Sodium Chloride (Sodium Chloride 0.9% 10 Ml Syringe) 10 ml FLUSH ASDIRECTED PRN PRN Reason: Keep Vein Open
[2021-04-20] MEDS ORDERED: Prenatal Multivitamin with Calcium/Folic Acid/Iron Tab PO SCH (09:00)
[2021-04-20 10:00] VITALS: BP 139/92; PULSE 65
== END 2021-04-20 13:40 | disposition home or self-care (01) | DRG 807 ==
LOC: JD.OBCHECK 01:34 → JD.OB 01:34 → JD.OBCHECK 04:36 → JD.OB 04:37 → OBSVTOIN 11:35 → JD.OB 11:36
PROVIDERS: ADMIT Obstetrics & Gynecology; ATTEND Obstetrics & Gynecology
PROC: 10E0XZZ Delivery of Products of Conception, External Approach (ICD-10-PCS; principal; 2021-04-19)
PROC: 10907ZC Drainage of Amniotic Fluid, Therapeutic from Products of Conception, Via Natural or Artificial Opening (ICD-10-PCS; 2021-04-19)
PROC: 3E0R3BZ Introduction of Anesthetic Agent into Spinal Canal, Percutaneous Approach (ICD-10-PCS; 2021-04-19)
PROC: 00HU33Z Insertion of Infusion Device into Spinal Canal, Percutaneous Approach (ICD-10-PCS; 2021-04-19)
DX: O80 Encounter for full-term uncomplicated delivery (principal); Z37.0 Single live birth; Z3A.39 39 weeks gestation of pregnancy; Z20.822 Contact with and (suspected) exposure to COVID-19
CPT/HCPCS: 36415; 51702; 59025; 59409; 82565; 82570; 83615; 84156; 84450; 84460; 84520; 84550; 85025; 86592; 86850; 86900; 86901; A9270-GY; J2590; J3010; J3490; J7120; U0002

== ENCOUNTER 2021-12-03 17:24 | Emergency (ER) | payer MEDICAID ==
[2021-12-03] MEDS ORDERED: Ketorolac 15 MG/ML SDV IVPUSH ONE (18:07)
[2021-12-03 19:50] VITALS: BP 127/81; PULSE 56
== END 2021-12-03 19:40 | disposition home or self-care (01) ==
LOC: JD.ED 17:24
DX: R07.89 Other chest pain (principal); K21.9 Gastro-esophageal reflux disease without esophagitis; I10 Essential (primary) hypertension; Z91.09 Other allergy status, other than to drugs and biological substances
CPT/HCPCS: 71045; 71045-26; 81025; 93005; 99285-25